=== PATIENT | male | born 1945 | race Caucasian/White ===

== ENCOUNTER 2016-10-16 11:09 | Inpatient (IN) | payer MEDICARE, OTHER ==
[~2016-10-16] VITALS: Ht 167.6 cm; Wt 70.1 kg
[~2016-10-16 11:09] MED LIST: ASPI-496 PO; CHERRY; CHERRY PO; DOCU-131 PO; GENT30CR TP; LEVO500T47 PO; METR500T PO; POTA20TA14 PO; SEVE800T7 PO; SIMV20TA3 PO; VALA1000 PO; VITA0.8T2 PO
[2016-10-16] MEDS ORDERED: DILTIAZEM 125 MG in DEXTROSE 5% 100 ML IV SCH (11:22)
[2016-10-16] MEDS ORDERED: DILTIAZEM 5 MG/ML, 5ML ONE (11:27)
[2016-10-16] MEDS ORDERED: ASPIRIN 81 MG TABLET CHEW ONE (11:27)
[2016-10-16] MEDS ORDERED: ASPIRIN 81 MG TABLET CHEW PO ONE (11:30)
[2016-10-16] MEDS ORDERED: NITROGLYCERIN SINGLE TAB 0.4 MG SL PRN (11:30)
[2016-10-16] MEDS ORDERED: DILTIAZEM 5 MG/ML, 5ML IV ONE (11:30)
[2016-10-16] MEDS ORDERED: SODIUM CHLORIDE FLUSH 10ML SYR IVF ONE (11:30)
[2016-10-16 11:58] LABS: HEMATOCRIT 29.1 % (39.2-51.8); HEMOGLOBIN 9.7 g/dL (13.7-18.0); WHITE BLOOD COUNT 16.3 x10^3/uL (3.4-10)
[2016-10-16 12:09] LABS: BLOOD UREA NITROGEN 89 mg/dL (7-18)
[2016-10-16 12:28] LABS: ASPARTATE AMINO TRANSFERASE 18 U/L (15-37)
[2016-10-16] MEDS ORDERED: SODIUM CHLORIDE FLUSH 10ML SYR IVF PRN (13:30)
[2016-10-16] MEDS ORDERED: ONDANSETRON 2MG/ML, 2ML IVPush PRN (14:30)
[2016-10-16] MEDS ORDERED: DOCUSATE 100 MG CAPSULE PO PRN (14:30)
[2016-10-16] MEDS ORDERED: ONDANSETRON ODT 4 MG PO PRN (14:30)
[2016-10-16] MEDS ORDERED: TRAZODONE 50MG TABLET PO PRN (14:30)
[2016-10-16] MEDS ORDERED: ACETAMINOPHEN 325 MG TABLET PO PRN (14:30)
[2016-10-16 15:01] VITALS: BP 123/73
[2016-10-16 15:07] LABS: IS PT STATUS REG ER OR PRE ER? NO
[2016-10-16] MEDS: HEPARIN 25,000 UNITS/500ML PMX 500 ML IV PRN (15:28)
[2016-10-16] MEDS: SEVELAMER 800MG TABLET PO SCH (17:10)
[2016-10-16] MEDS ORDERED: ARANESP 100 MCG/ML **ESRD SQ SCH (17:30)
[2016-10-16] MEDS: POTASSIUM CHLORIDE 10 MEQ TABLET.ER PO SCH (17:52)
[2016-10-16 19:45] LABS: HEP B SURF. AB 117.1 mIU/mL (0.0-10.0)
[2016-10-16 20:40] LABS: IS PT STATUS REG ER OR PRE ER? NO
[2016-10-16 20:54] VITALS: BP 152/82
[2016-10-16] MEDS ORDERED: METOPROLOL TARTRATE 25 MG TABLET PO SCH (21:00)
[2016-10-17 04:14] VITALS: BP 120/76
[2016-10-17 05:04] LABS: HEMATOCRIT 26.9 % (39.2-51.8); HEMOGLOBIN 9.1 g/dL (13.7-18.0); WHITE BLOOD COUNT 13.2 x10^3/uL (3.4-10)
[2016-10-17 05:22] LABS: BLOOD UREA NITROGEN 85 mg/dL (7-18)
[2016-10-17 05:35] LABS: IS PT STATUS REG ER OR PRE ER? NO
[2016-10-17 07:42] VITALS: BP 132/75
[2016-10-17] MEDS: POTASSIUM CHLORIDE 10 MEQ TABLET.ER PO SCH (08:38)
[2016-10-17] MEDS: SEVELAMER 800MG TABLET PO SCH ×3 (08:39→17:40)
[2016-10-17] MEDS: METOPROLOL TARTRATE 25 MG TABLET PO SCH ×2 (08:39→21:56)
[2016-10-17] MEDS: MULTIVITS,STRESS FORMULA 1 TABLET PO SCH (08:39)
[2016-10-17] MEDS: SENNA/DOCUSATE TABLET PO SCH (08:39)
[2016-10-17] MEDS: ASPIRIN 81 MG TABLET EC PO SCH (08:39)
[2016-10-17] MEDS: LISINOPRIL 5 MG TABLET PO SCH ×2 (09:00→21:57)
[2016-10-17 10:24] LABS: CELLS COUNTED 1; DILUTION 1; WBC SQUARES COUNTED 9
[2016-10-17 13:32] VITALS: BP 94/56
[2016-10-17 19:40] VITALS: BP 110/67
[2016-10-17] MEDS: HEPARIN 25,000 UNITS/500ML PMX 500 ML IV PRN (19:42)
[2016-10-17] MEDS: ATORVASTATIN 80 MG TABLET PO SCH (21:57)
[2016-10-18 01:30] VITALS: BP 92/58
[2016-10-18 01:49] LABS: HEMATOCRIT 24.7 % (39.2-51.8); HEMOGLOBIN 8.3 g/dL (13.7-18.0); WHITE BLOOD COUNT 12.7 x10^3/uL (3.4-10)
[2016-10-18 01:56] LABS: BLOOD UREA NITROGEN 88 mg/dL (7-18)
[2016-10-18] MEDS: METOPROLOL TARTRATE 25 MG TABLET PO SCH ×2 (07:17→20:35)
[2016-10-18] MEDS: LISINOPRIL 5 MG TABLET PO SCH ×2 (07:38→20:35)
[2016-10-18] MEDS: SEVELAMER 800MG TABLET PO SCH ×3 (08:01→17:14)
[2016-10-18] MEDS: ASPIRIN 81 MG TABLET EC PO SCH (08:01)
[2016-10-18] MEDS: SENNA/DOCUSATE TABLET PO SCH (08:01)
[2016-10-18] MEDS: MULTIVITS,STRESS FORMULA 1 TABLET PO SCH (08:01)
[2016-10-18] MEDS: POTASSIUM CHLORIDE 10 MEQ TABLET.ER PO SCH (08:01)
[2016-10-18 08:07] VITALS: BP 97/41
[2016-10-18] MEDS ORDERED: TICAGRELOR 90 MG TABLET ONE (13:37)
[2016-10-18] MEDS ORDERED: FENTANYL PF 100 MCG/2ML ONE (13:37)
[2016-10-18] MEDS ORDERED: MIDAZOLAM 1 MG/ML, 5ML ONE (13:37)
[2016-10-18] MEDS ORDERED: VERAPAMIL 2.5 MG/ML, 2ML ONE (13:38)
[2016-10-18] MEDS ORDERED: HEPARIN 1,000 UNITS/ML, 10ML ONE (13:38)
[2016-10-18] MEDS ORDERED: BIVALIRUDIN 250 MG ONE (13:38)
[2016-10-18] MEDS ORDERED: LIDOCAINE 2%, 20ML ONE (13:38)
[2016-10-18 15:09] VITALS: BP 99/62
[2016-10-18 18:51] VITALS: BP_SYST 107; BP_SYST 120; BP_DIAS 69; BP_DIAS 72
[2016-10-18] MEDS: ATORVASTATIN 80 MG TABLET PO SCH (20:30)
[2016-10-18] MEDS: TICAGRELOR 90 MG TABLET PO SCH (20:31)
[2016-10-19] VITALS (8 sets, daily range): BP systolic 88–126; BP diastolic 53–74
[2016-10-19] MEDS ORDERED: ALBUTEROL/IPRATROPIUM 2.5MG/0.5MG, 3 ML ONE (05:06)
[2016-10-19 05:32] LABS: HEMATOCRIT 24.2 % (39.2-51.8); HEMOGLOBIN 8.2 g/dL (13.7-18.0); WHITE BLOOD COUNT 12.7 x10^3/uL (3.4-10)
[2016-10-19 05:37] LABS: BLOOD UREA NITROGEN 78 mg/dL (7-18)
[2016-10-19] MEDS ORDERED: AMIODARONE 150 MG in DEXTROSE 5% 100 ML IV ONE ×2 (06:30→08:30)
[2016-10-19] MEDS ORDERED: FILTER 0.22 MICRON IV PRN (06:30)
[2016-10-19] MEDS: AMIODARONE 900 MG in DEXTROSE 5% 482 ML IV PRN (06:31)
[2016-10-19 06:45] LABS: DIFF TOTAL CELLS COUNTED 100 CELL DIFF
[2016-10-19 06:46] LABS: VERIFY COUNTS? YES
[2016-10-19 06:48] LABS: OVALOCYTES 1+
[2016-10-19 06:49] LABS: ANISOCYTOSIS 1+
[2016-10-19] MEDS: ALBUTEROL/IPRATROPIUM 2.5MG/0.5MG, 3 ML NPPB SCH ×4 (07:30→20:00)
[2016-10-19] MEDS: SEVELAMER 800MG TABLET PO SCH ×3 (08:27→16:58)
[2016-10-19] MEDS: SENNA/DOCUSATE TABLET PO SCH (08:27)
[2016-10-19] MEDS: ASPIRIN 81 MG TABLET EC PO SCH (08:27)
[2016-10-19] MEDS: POTASSIUM CHLORIDE 10 MEQ TABLET.ER PO SCH (08:27)
[2016-10-19] MEDS: TICAGRELOR 90 MG TABLET PO SCH ×2 (08:27→20:35)
[2016-10-19] MEDS: MULTIVITS,STRESS FORMULA 1 TABLET PO SCH (08:27)
[2016-10-19] MEDS: METOPROLOL TARTRATE 25 MG TABLET PO SCH (08:28)
[2016-10-19] MEDS: LISINOPRIL 5 MG TABLET PO SCH ×2 (08:28→20:35)
[2016-10-19] MEDS: ATORVASTATIN 80 MG TABLET PO SCH (20:35)
[2016-10-20] MEDS ORDERED: CALCIUM CARBONATE 500 MG TAB.CHEW PO ONE (01:00)
[2016-10-20 02:16] VITALS: BP 124/84
[2016-10-20] MEDS: AMIODARONE 900 MG in DEXTROSE 5% 482 ML IV PRN (04:57)
[2016-10-20] MEDS: METOPROLOL SUCCINATE 25 MG TAB.ER.24H PO SCH (04:59)
[2016-10-20 06:49] VITALS: BP 113/71
[2016-10-20] MEDS: ALBUTEROL/IPRATROPIUM 2.5MG/0.5MG, 3 ML NPPB SCH ×4 (07:00→20:00)
[2016-10-20] MEDS: SEVELAMER 800MG TABLET PO SCH ×3 (08:13→18:17)
[2016-10-20] MEDS: TICAGRELOR 90 MG TABLET PO SCH ×2 (08:14→20:31)
[2016-10-20] MEDS: ASPIRIN 81 MG TABLET EC PO SCH (08:14)
[2016-10-20] MEDS: LISINOPRIL 5 MG TABLET PO SCH ×2 (08:14→20:32)
[2016-10-20] MEDS: MULTIVITS,STRESS FORMULA 1 TABLET PO SCH (08:14)
[2016-10-20] MEDS: POTASSIUM CHLORIDE 10 MEQ TABLET.ER PO SCH (08:14)
[2016-10-20] MEDS: SENNA/DOCUSATE TABLET PO SCH (08:14)
[2016-10-20 11:05] VITALS: BP 116/73
[2016-10-20] MEDS: AMIODARONE 200 MG TABLET PO SCH ×2 (11:08→20:31)
[2016-10-20 12:32] VITALS: BP 108/69
[2016-10-20] MEDS ORDERED: ALUMINUM/MAG/SIMETHICONE 30 ML UDC PO ONE (16:30)
[2016-10-20] MEDS: FAMOTIDINE 20 MG TABLET PO SCH ×2 (18:17→18:42)
[2016-10-20 19:22] VITALS: BP 129/76
[2016-10-20] MEDS: ATORVASTATIN 80 MG TABLET PO SCH (20:31)
[2016-10-21 00:19] VITALS: BP 125/73
[2016-10-21] MEDS: METOPROLOL SUCCINATE 25 MG TAB.ER.24H PO SCH (05:14)
[2016-10-21] MEDS: ALBUTEROL/IPRATROPIUM 2.5MG/0.5MG, 3 ML NPPB SCH ×3 (07:00→15:00)
[2016-10-21 08:50] VITALS: BP 120/65
[2016-10-21] MEDS: SEVELAMER 800MG TABLET PO SCH ×3 (08:58→12:22)
[2016-10-21] MEDS: POTASSIUM CHLORIDE 10 MEQ TABLET.ER PO SCH ×2 (08:58→09:01)
[2016-10-21] MEDS: AMIODARONE 200 MG TABLET PO SCH (08:58)
[2016-10-21] MEDS: TICAGRELOR 90 MG TABLET PO SCH (08:58)
[2016-10-21] MEDS: MULTIVITS,STRESS FORMULA 1 TABLET PO SCH (08:59)
[2016-10-21] MEDS: ASPIRIN 81 MG TABLET EC PO SCH (08:59)
[2016-10-21] MEDS: FAMOTIDINE 20 MG TABLET PO SCH (08:59)
[2016-10-21] MEDS: SENNA/DOCUSATE TABLET PO SCH (08:59)
[2016-10-21] MEDS: LISINOPRIL 5 MG TABLET PO SCH (08:59)
[2016-10-21] MEDS ORDERED: CALC667C PO (12:28)
[2016-10-21] MEDS ORDERED: ATOR-2 PO (13:24)
[2016-10-21] MEDS ORDERED: FAMO20TA7 PO (13:24)
[2016-10-21] MEDS ORDERED: LISI5TAB7 PO (13:24)
[2016-10-21] MEDS ORDERED: TRAZ50TA18 PO (13:24)
[2016-10-21] MEDS ORDERED: SEVE800T7 PO (13:24)
[2016-10-21] MEDS ORDERED: METO25TA91 PO (13:24)
[2016-10-21] MEDS ORDERED: AMIO200T42 PO (13:24)
[2016-10-21] MEDS ORDERED: ONDA4TAB13 PO (13:24)
[2016-10-21] MEDS ORDERED: TICA90TA PO (13:24)
[2016-10-21] MEDS ORDERED: IPRA3AMP NPPB (13:24)
[2016-10-21 14:23] VITALS: BP 108/69
[2016-10-21] MEDS ORDERED: GABA-826 PO (17:20)
[2016-10-22] MEDS ORDERED: FAMOTIDINE 20 MG TABLET PO SCH (09:00)
== END 2016-10-21 17:00 | disposition home health service (06) | DRG 246 ==
LOC: ED 13:03 → EDIP 13:04 → ED 13:47 → 5SO 14:00 → DCLOUNGE 10-21 16:09
PROVIDERS: ADMIT Internal Medicine; ATTEND Internal Medicine
PROC: 5A1D60Z (ICD-10-PCS; 2016-10-16)
PROC: 027034Z Dilation of Coronary Artery, One Artery with Drug-eluting Intraluminal Device, Percutaneous Approach (ICD-10-PCS; principal; 2016-10-18)
PROC: 4A023N7 Measurement of Cardiac Sampling and Pressure, Left Heart, Percutaneous Approach (ICD-10-PCS; 2016-10-18)
PROC: B2111ZZ Fluoroscopy of Multiple Coronary Arteries using Low Osmolar Contrast (ICD-10-PCS; 2016-10-18)
PROC: B2151ZZ Fluoroscopy of Left Heart using Low Osmolar Contrast (ICD-10-PCS; 2016-10-18)
DX: I21.4 Non-ST elevation (NSTEMI) myocardial infarction (principal); N18.6 End stage renal disease; E43 Unspecified severe protein-calorie malnutrition; I50.43 Acute on chronic combined systolic (congestive) and diastolic (congestive) heart failure; D68.69 Other thrombophilia; I27.2 Other secondary pulmonary hypertension; I48.92 Unspecified atrial flutter; I13.2 Hypertensive heart and chronic kidney disease with heart failure and with stage 5 chronic kidney disease, or end stage renal disease; D63.1 Anemia in chronic kidney disease; I48.0 Paroxysmal atrial fibrillation; E83.51 Hypocalcemia; E78.5 Hyperlipidemia, unspecified; N25.0 Renal osteodystrophy; E87.6 Hypokalemia; I25.10 Atherosclerotic heart disease of native coronary artery without angina pectoris; I25.5 Ischemic cardiomyopathy; Z68.24 Body mass index [BMI] 24.0-24.9, adult; Z88.1 Allergy status to other antibiotic agents; Z88.5 Allergy status to narcotic agent; Z88.8 Allergy status to other drugs, medicaments and biological substances; I25.2 Old myocardial infarction; Z87.01 Personal history of pneumonia (recurrent); Z79.82 Long term (current) use of aspirin; Z79.899 Other long term (current) drug therapy; Z86.19 Personal history of other infectious and parasitic diseases; Z86.73 Personal history of transient ischemic attack (TIA), and cerebral infarction without residual deficits; Z87.891 Personal history of nicotine dependence; Z91.14 Patient's other noncompliance with medication regimen; Z95.5 Presence of coronary angioplasty implant and graft; Z99.2 Dependence on renal dialysis; Z99.81 Dependence on supplemental oxygen
CPT/HCPCS: 36415; 71010; 80048; 80053; 80061; 83036; 83735; 83880; 84100; 84484; 85025; 85520; 85610; 85730; 86704; 86706; 87040; 87070; 87205; 87340; 89051; 93005; 93306; 93458; 94640; 96365; 96375; 99156; 99157; C1894; C9600; J0583; J0882; J1644; J2250; J3010; J3490; J7620; C1725; C1769; C1874; C1887; J0282; J7060; Q9967

== ENCOUNTER → 2017-06-20 | Outpatient (CLI) | payer MEDICARE, OTHER ==
[~2017-06-20] MED LIST changes: +AMIO200T42 PO; +ATOR-2 PO; +CALC667C PO; +FAMO20TA7 PO; +GABA-826 PO; +IPRA3AMP NPPB; +LISI5TAB7 PO; +METO25TA91 PO; +ONDA4TAB13 PO; +TICA90TA PO; +TRAZ50TA18 PO
== END ==
LOC: CVU 13:12
PROVIDERS: ATTEND Internal Medicine Cardiovascular Disease
DX: I65.23 Occlusion and stenosis of bilateral carotid arteries (principal); I35.1 Nonrheumatic aortic (valve) insufficiency; I10 Essential (primary) hypertension; Z95.5 Presence of coronary angioplasty implant and graft; Z87.891 Personal history of nicotine dependence; Z86.73 Personal history of transient ischemic attack (TIA), and cerebral infarction without residual deficits
CPT/HCPCS: 93306; 93880